=== PATIENT | female | born 1985 | race Caucasian/White ===

== ENCOUNTER → 2017-01-12 | Outpatient (CLI) | payer OTHER ==
[~2017-01-12] MED LIST: ACET50TA PO; AMOX250C3 PO; DOCU10ELUD PO; IBUP80TA PO; LABE10TAB PO; MOM30SS PO; PRENTAB66 PO; VENL37TA FT
--- NOTE | 2017-01-13 05:01 | REP ---
Clinical: Dating and viability. Technique: Transabdominal first trimester obstetrical ultrasound. Findings: Ultrasound examination demonstrates a single live intrauterine in variable presentation. The placenta is noted anteriorly and grade zero. Amniotic fluid volume is normal. Cervix measures 3.7 cm in length and appears closed. Gestational age by biometrical measurements 14 weeks 5 days. Estimated date of delivery 07/08/2017. heart rate equals 153 beats per minute. Impression: Single live early intrauterine at 14 weeks 5 days gestational age. Complete anatomical assessment should be performed at 19-20 weeks. Signed by Lyndon Tavares MD 01/13/2017 04:53 A
== END ==
LOC: M SMT 12:59
PROVIDERS: ATTEND Nurse Practitioner Family
DX: Z34.81 Encounter for supervision of other normal pregnancy, first trimester (principal)

== ENCOUNTER → 2017-01-25 | Outpatient (CLI) | payer OTHER ==
--- NOTE | 2017-01-25 12:01 | REP ---
OBSTETRIC ULTRASOUND: 01/25/2017 COMPARISON: First trimester ultrasound 01/12/2017. CLINICAL HISTORY: No heart motion noted at office appointment today. FINDINGS: Sonographic evaluation shows no heart activity or movement during this examination on multiple interrogations. An anterior grade 0 placenta noted without previa abruption. There is a contraction posteriorly. Biometry: BPD 3 cm = 15 weeks 4 HC 12.4 cm = 15 weeks 2 days AC 10.3 cm = 16 weeks 2 days FL 1.5 cm = 14 weeks 4 days. HL 1.7 cm = 14 weeks 6 days Average ultrasound age 15 weeks 3 days, EDC 07/16/2017. By initial ultrasound she is 16 weeks 4 days. The cervix is 4 cm long and closed. IMPRESSION: 1. Intrauterine demise with no heart activity or movement observed on multiple interrogations. size at 15 weeks 3 days. By initial ultrasound she would be 16 weeks 4 days. 2. Anterior placenta without previa or abruption. A posterior contraction noted. Visually normal amniotic fluid. Signed by Manny Martinez MD 01/25/2017 05:06 P
== END ==
LOC: M RAD 10:55
PROVIDERS: ATTEND Advanced Practice Midwife
DX: Z34.81 Encounter for supervision of other normal pregnancy, first trimester (principal)

== ENCOUNTER 2017-01-26 14:32 | Inpatient (IN) | payer OTHER ==
[~2017-01-26] VITALS: Ht 170.2 cm; Wt 137.0 kg
[2017-01-26 14:45] VITALS: BP 143/87
[2017-01-26] MEDS ORDERED: LR 1,000 ML IV SCH ×2 (15:30→22:45)
[2017-01-26 15:33] LABS: BASO % 0.2 % (0.0-1.0); EOS % 0.2 % (0.0-3.0); LARGE UNSTAINED CELL # 0.1 K/mm3 (0.0-0.4); LARGE UNSTAINED CELL % 1.9 % (0.0-4.0); LYMPH # 1.9 K/mm3 (1.5-4.5); LYMPH % 31.2 % (24.0-44.0); MEAN CORPUSCULAR HEMOGLOBIN 29.2 pg (27.0-33.0); MEAN CORPUSCULAR HGB CONC 33.2 g/dl (32.0-36.5); MONO # 0.3 K/mm3 (0.0-0.8); MONO % 4.7 % (0.0-5.0); NEUTROPHILS # 3.6 K/mm3 (1.8-7.7); NEUTROPHILS % 61.8 % (36.0-66.0); PLATELET COUNT, AUTOMATED 237 k/mm3 (150-450); RED CELL DISTRIBUTION WIDTH 13.1 % (11.5-14.5); WHITE BLOOD COUNT 5.8 K/mm3 (4.0-10.0)
[2017-01-26 16:27] LABS: THYROXINE (T4) 12.4 UG/DL (4.5-12.0)
--- NOTE | 2017-01-26 17:50 | HPEPDOC ---
Obstetrical History & Physical General Date of Admission Jan 26, 2017 at 16:17 History of Present Illness Tanisha is a 31yo who presents to L&D with known IUFD. By original dating u/s she should be 16w5d today. She presented for 3D ultrasound to outside radiology facility and was told, "the baby has no heartbeat, present to your doctor for care." She followed up in clinic yesterday and had a formal ultrasound at [facility] which re-demonstrated absence of cardiac activity. She was counseled on options for delivery (expectant management vs medical management vs surgical D&E). She elected to proceed with medical management and was given 4 doses of oral cytotec 200mcg to take q6hr and then had a follow-up visit in clinic today. Since yesterday she has had very light cramping, no vaginal bleeding at all. No fevers/chills/nausea/vomiting. Tanisha was sent from clinic to L&D for further medical management. However, on presentation she states she would like to proceed with D&E rather than continue with cytotec medical management. She understands that a D&E does not remove an intact fetus, and she states she and her have talked about it at length and she is accepting of this, preferring it over continued medical management. PMhx: Obesity, HTN on labetalol 200mg BID, Depression/Anxiety on effexor 150mg qd, GERD on zantac 150mg qd Chief Complaint: IUFD Information Provided By: Patient Care Care: None Dating Final EDC: Jul 08, 2017 Final EDC by: LMP Antepartum Course Diagnos(e)s IUFD at 15 weeks, Obesity Height (inches): 67 Pre- weight (lbs.): 290 Past Medical History Past Obstetrical History : Past Obstetrical History: Multigravida (History of 3 prior vaginal deliveries at 37wk, 40wk, 33wk. 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 history Past Medical History Medical History Obesity, HTN on labetalol 200mg BID, Depression/Anxiety on effexor 150mg qd, GERD on zantac 150mg qd Surgical History: [place] teeth Family History Significant Family History: No pertinent family hx Social History Marital Status: Family situation: Spouse/partner home Psychosocial History: Anxiety, Depression * Smoker: current smoker (smokes 5 cig/day, has smoked for 3 years) Alcohol: Denies Drugs: denies Allergies Coded Allergies: No Known Allergies (Verified Allergy, 10/10/12) Medications Scheduled ( Vitamins Plus) Plus Tab 1 PO DAILY Acetaminophen (Tylenol) 500 Mg Tab 1,000 MG PO Q4HP Ibuprofen (Motrin, Advil) 800 Mg Tab 800 MG PO Q8HP Labetalol Hcl (Normodyne, Trandate) 100 Mg Tab 100 MG PO BID Venlafaxine Hcl (Effexor) 37.5 Mg Tab 37.5 MG FT DAILY Physical Examination Physical Examination GENERAL: Alert and oriented times three. ABDOMEN: obese, NTTP HEART RATE: Regular rate and rhythm. LUNGS: Clear to auscultation (CTA). EXTREMITIES: No edema. Vital Signs/I&O Vital Signs Date Time Temp Pulse Resp B/P Pulse Ox O2 Delivery O2 Flow Rate FiO2 01/26/17 14:45 98.6 86 18 143/87 Laboratory Data 24H LABS Laboratory Tests 2 01/26/17 15:20: White Blood Count 5.8, Red Blood Count 4.02, Hemoglobin 11.7L, Hematocrit 35.4L , Mean Corpuscular Volume 88.0, Mean Corpuscular Hemoglobin 29.2, Mean Corpuscular Hemoglobin Concent 33.2, Red Cell Distribution Width 13.1, Platelet Count 237, Neutrophils (%) (Auto) 61.8, Lymphocytes (%) (Auto) 31.2, Monocytes ( %) (Auto) 4.7, Eosinophils (%) (Auto) 0.2, Basophils (%) (Auto) 0.2, Neutrophils # (Auto) 3.6, Lymphocytes # (Auto) 1.9, Monocytes # (Auto) 0.3, Eosinophils # (Auto) 0.0, Basophils # (Auto) 0.0, Large Unclassified Cells # 0.1 , Large Unclassified Cells % 1.9, Syphilis Serology NONREACTIVE, Thyroid Stimulating Hormone (TSH) 0.806, Thyroxine (T4) 12.4H 01/26/17 15:21: CBC/BMP Laboratory Tests 01/26/17 15:20 Red Blood Count 4.02, Mean Corpuscular Volume 88.0, Mean Corpuscular Hemoglobin 29.2, Mean Corpuscular Hemoglobin Concent 33.2, Red Cell Distribution Width 13.1 , Neutrophils (%) (Auto) 61.8, Lymphocytes (%) (Auto) 31.2, Monocytes (%) (Auto ) 4.7, Eosinophils (%) (Auto) 0.2, Basophils (%) (Auto) 0.2, Neutrophils # (Auto ) 3.6, Lymphocytes # (Auto) 1.9, Monocytes # (Auto) 0.3, Eosinophils # (Auto) 0.0, Basophils # (Auto) 0.0 Pertinent Laboratoy Data Blood Type: B+ RBC Antibody Screen: Negative Anatomy Ultrasound Ultrasound Date: Jan 12, 2017 (dating ultrasound) Placenta Location: Anterior Normal Anatomy: Yes Placenta Previa: No Other Ultrasounds Formal ultrasound at [facility] on 01/25: absence of cardiac activity and movement, fetus measures 15w3d rather than 16w4d. Assessment/Plan Assessment Tanisha is a 31yo who presents to L&D with known IUFD at 16w5d, measuring 15w3d. IUFD diagnosed at outside 3D ultrasound, but confirmed 01/25 by formal ultarsound. Originally elected for medical management with cytotec, now s /p 4 doses of 200mcg oral cytotec overnight with no vaginal bleeding. On admission, now desires to proceed with surgical management, D&E after thorough counseling on all options. Last ate (subway sandwich) at 1:15pm, will proceed with surgery at 9:15pm. PMhx: Obesity, HTN on labetalol 200mg BID, Depression/Anxiety on effexor 150mg qd, GERD on zantac 150mg qd Plan Admit and orient Counseled on expectant management vs medical management vs surgical management ( D&E) and desires to proceed with D&E Consent form signed, OR notified, anesthesia desires 8hr after last ate so scheduled for 9:15pm tonight NPO until surgery Labs: CBC, T&S, syphilis serology, TSH/T4, lupus anticoagulant, beta 2 glycoprotein, anticardiolipin antibody, parvo virus serology, drug profile Lactated Ringers (LR) at 125 mL/hr while NPO All questions answered Dr. Humaira Sharp MD [place] Yen MD Jan 26, 2017 17:23
--- NOTE | 2017-01-26 17:59 | IPNPDOC ---
Text Note Date of Service The patient was seen on 01/26/17. NOTE Laminaria Placement Note Tanisha is a 31yo who presents to L&D with known IUFD at 16w5d, measuring 15w3d. IUFD diagnosed at outside 3D ultrasound, but confirmed 01/25 by formal ultarsound. Originally elected for medical management with cytotec, now s /p 4 doses of 200mcg oral cytotec overnight with no vaginal bleeding. Now desires to proceed with surgical management, D&E, after thorough counseling on all options. Consent form signed. SSE (chaperoned by CLIVE Magana) performed by Dr. Barrios and assisted by Dr. Sharp : NEFG, sterile speculum inserted into the vagina, cervical os approximately 1cm dilated with no bleeding, anterior lip of cervix grasped with single tooth tenaculum. Ring forceps used to insert FIVE laminaria of varying sizes into the cervical canal, one-by-one. All laminaria strings visible outside the cervical os. Tenaculum removed with site hemostasis. One 4x4 sponge rolled up and placed flush against the cervix to hold the laminaria in place. Speculum removed. Patient tolerated the procedure well. Laminaria will be removed at time of D&E. Anticipated surgery time: 21:15 NPO until that time with IVF Dr. Geraldine Sharp MD [place] WARREN,Vish, I+O VSVish, I+O Laboratory Tests 01/26/17 15:20 Red Blood Count 4.02, Mean Corpuscular Volume 88.0, Mean Corpuscular Hemoglobin 29.2, Mean Corpuscular Hemoglobin Concent 33.2, Red Cell Distribution Width 13.1 , Neutrophils (%) (Auto) 61.8, Lymphocytes (%) (Auto) 31.2, Monocytes (%) (Auto ) 4.7, Eosinophils (%) (Auto) 0.2, Basophils (%) (Auto) 0.2, Neutrophils # (Auto ) 3.6, Lymphocytes # (Auto) 1.9, Monocytes # (Auto) 0.3, Eosinophils # (Auto) 0.0, Basophils # (Auto) 0.0 Vital Signs Date Time Temp Pulse Resp B/P Pulse Ox O2 Delivery O2 Flow Rate FiO2 01/26/17 14:45 98.6 86 18 143/87 GERALDINE SHARP MD Jan 26, 2017 17:58
[2017-01-26] MEDS ORDERED: LIDOCAINE 1% SDV INJ 30 ML VIAL As Ordered ONE (20:51)
[2017-01-26] MEDS ORDERED: SILVER NITRATE APPLICATOR As Ordered ONE (20:51)
[2017-01-26] MEDS ORDERED: fentaNYL 100 MCG/2 ML INJECTION (J3010) As Ordered ONE (21:41)
[2017-01-26] MEDS ORDERED: MIDAZOLAM INJ 2 MG/2 ML VIAL (J2250) As Ordered ONE (21:41)
[2017-01-26] MEDS ORDERED: LIDOCAINE 2% JELLY 30 ML As Ordered ONE (21:42)
[2017-01-26] MEDS ORDERED: METOCLOPRAMIDE INJ 10MG/2ML VIAL (J2765) As Ordered ONE (21:45)
[2017-01-26] MEDS ORDERED: LIDOCAINE 2% INJ 100 MG/5 ML SDV (FOR ANES.) As Ordered ONE (21:45)
[2017-01-26] MEDS ORDERED: SUCCINYLCHOLINE 100 MG/5 ML SYRINGE (J0330) As Ordered ONE (21:45)
[2017-01-26] MEDS ORDERED: GLYCOPYRROLATE INJ 0.2 MG/ML 2 ML VIAL As Ordered ONE (21:45)
[2017-01-26] MEDS ORDERED: KETOROLAC 60 MG/2 ML VIAL (J1885) As Ordered ONE (21:45)
[2017-01-26] MEDS ORDERED: ONDANSETRON 4MG/2ML VIAL (J2405) As Ordered ONE (21:45)
[2017-01-26] MEDS ORDERED: PROPOFOL 200 MG/20 ML VIAL As Ordered ONE ×2 (21:45→22:17)
[2017-01-26] MEDS ORDERED: NEOSTIGMINE 1MG/ML 5 ML SYRINGE (J2710) As Ordered ONE (21:45)
[2017-01-26] MEDS ORDERED: ROCURONIUM BROMIDE 50 MG/5 ML VIAL As Ordered ONE (21:45)
[2017-01-26] MEDS ORDERED: METOCLOPRAMIDE INJ 10MG/2ML VIAL (J2765) IV PRN (22:45)
[2017-01-26] MEDS ORDERED: fentaNYL 100 MCG/2 ML INJECTION (J3010) IV PRN (22:45)
[2017-01-26] MEDS ORDERED: ONDANSETRON 4MG/2ML VIAL (J2405) IV PRN (22:45)
[2017-01-26] MEDS ORDERED: MEPERIDINE INJ 25 MG/ML VIAL (J2175) IV PRN (22:45)
[2017-01-26] MEDS ORDERED: PERCOCET 5MG/325MG TAB PO PRN (22:45)
[2017-01-26 22:52] VITALS: BP 123/66
[2017-01-26] MEDS ORDERED: DOXYCYCLINE HYCLATE 100 MG TAB PO ONE (23:45)
--- NOTE | 2017-01-27 06:02 | RO ---
DATE OF PROCEDURE: 01/26/2017 PREPROCEDURE DIAGNOSIS: Intrauterine demise at approximately 16 weeks. POSTPROCEDURE DIAGNOSIS: Intrauterine demise at approximately 16 weeks. SURGEON: Geraldine Sharp MD UPSETTER SETTER UP: Dell Barrios MD CLINICAL SERVICE: Gynecology. ANESTHESIA: GETA MATERIAL FORWARDED TO THE LAB FOR EXAMINATION: Intrauterine contents/products of conception. INDICATION FOR OPERATION: Tanisha is a 31-year-old G4, now P2-1-1-3 who had presented to an outside ultrasound facility for a 3D ultrasound and was noted to have absent cardiac activity at approximately 16 weeks. She then presented to our clinic and had confirmatory formal ultrasound which showed no cardiac activity and no movement measuring approximately 15 weeks 3 days though she should have been measuring closer to 16 weeks 4 days. She was counseled on her options, expected management versus medical management versus surgical management and she originally elected for medical management and had four doses of oral Cytotec with no bleeding over the course of an evening and she presented to her followup appointment desiring then surgical management. She was re-counseled and desired to proceed with a dilation and evacuation. DESCRIPTION OF FINDINGS: Laminaria was placed preoperatively (five total laminaria sticks with one sponge- in the OR the five laminaria sticks were counted and removed along with the sponge). Her cervix at that point was dilated to approximately 1-2 cm. Transabdominal ultrasound confirmed again no cardiac activity, fetus measuring approximately 15 weeks. The procedure was performed under ultrasound guidance and at the end of the procedure, the parts were all accounted for. INFECTION CLASSIFICATION: 2. ESTIMATED BLOOD LOSS: 150 mL. IV FLUIDS: 1 liter LR URINE OUTPUT: Not measured. OPERATION PERFORMED: Dilation and evacuation. DESCRIPTION OF OPERATION: Prior to the operative procedure in the labor and delivery room, five laminary sticks were placed in the cervix with the strings protruding from the os and 4x4 gauze was placed up against the cervix to keep the laminary in place. After arrival in the OR, Tanisha underwent general endotracheal anesthesia and was placed in low lithotomy position and perineum and vagina were prepped and draped in sterile fashion. [place] speculum was inserted and all five laminary sticks along with 4x4 gauze were removed. Cervix at this point was approximately 1-2 cm dilated. Anterior segment of the cervix was grasped with a single tooth tenaculum and the cervix was sequentially dilated using Carolyn dilators. A 16 mm suction curette was introduced to the fundus of the uterus under ultrasound guidance. Suction was activated at 60 cm of water. We began then to extract a mixture of fluid, blood and tissue with parts noted in the suction. Under ultrasound guidance, we used small forceps to continue to remove parts including the calvarium. Suction curettage was used again to remove the placenta and then a sharp curette was used with good cry noted in 360 degrees. One more pass of the suction curette ensured removal of all intrauterine contents. Hemostasis was noted after the procedure. Then on the OR table, we placed all of the parts to include the upper limbs, spine with pelvis and legs and the calvarium together to account for all of the parts, along with the placenta. At that point, the tenaculum was removed from the cervix and hemostasis was noted at the tenaculum sites. [place] speculum was removed. Good uterine massage was employed to gain firmness of both the uterus fundus and the lower uterine segment. She was awakened from general anesthesia in good condition and transferred to the recovery room. All counts were correct times two. JOSE
[2017-01-29 00:06] LABS: ANTI PARVO VIRUS LEVEL IGG 7.2 index (0.0-0.8); ANTI PARVO VIRUS LEVEL IgM 0.2 index (0.0-0.8)
== END 2017-01-27 00:31 | disposition home or self-care (01) | DRG 770 ==
LOC: M LDO 14:32 → M LDI 16:17
PROVIDERS: ADMIT Obstetrics & Gynecology; ATTEND Obstetrics & Gynecology
PROC: 10D17ZZ Extraction of Products of Conception, Retained, Via Natural or Artificial Opening (ICD-10-PCS; principal; 2017-01-26 21:15)
DX: O02.1 Missed abortion (principal)

== ENCOUNTER 2017-07-13 15:03 | Emergency (ER) | payer OTHER ==
[~2017-07-13] VITALS: Ht 170.2 cm; Wt 100.0 kg
[2017-07-13] MEDS ORDERED: IBUP80TA PO (15:15)
[2017-07-13] MEDS ORDERED: LABE20TAB (15:15)
[2017-07-13] MEDS ORDERED: VENL150C43 PO (15:15)
[2017-07-13] MEDS ORDERED: RANI150T (15:15)
[2017-07-13] MEDS ORDERED: MORPHINE 4 MG/ML 1ML SYRINGE IV ONE (16:30)
[2017-07-13] MEDS ORDERED: ONDANSETRON 4MG/2ML VIAL (J2405) IV ONE (16:30)
[2017-07-13] MEDS ORDERED: GASTROGRAFIN SOLUTION 30ML (Q9963) PO ONE ×2 (16:30)
[2017-07-13 17:00] LABS: BASO % 0.2 % (0.0-1.0); EOS % 0.5 % (0.0-3.0); LARGE UNSTAINED CELL # 0.1 K/mm3 (0.0-0.4); LARGE UNSTAINED CELL % 1.4 % (0.0-4.0); LYMPH # 1.8 K/mm3 (1.5-4.5); MEAN CORPUSCULAR HEMOGLOBIN 26.1 pg (27.0-33.0); MEAN CORPUSCULAR HGB CONC 32.3 g/dl (32.0-36.5); MEAN CORPUSCULAR VOLUME 80.8 fl (80.0-96.0); MONO # 0.3 K/mm3 (0.0-0.8); MONO % 4.5 % (0.0-5.0); NEUTROPHILS # 3.6 K/mm3 (1.8-7.7); NEUTROPHILS % 62.5 % (36.0-66.0); PLATELET COUNT, AUTOMATED 272 k/mm3 (150-450); RED CELL DISTRIBUTION WIDTH 14.5 % (11.5-14.5); WHITE BLOOD COUNT 5.7 K/mm3 (4.0-10.0)
[2017-07-13 17:19] LABS: ALBUMIN 3.8 GM/DL (3.2-5.2); ALBUMIN/GLOBULIN RATIO 1.12 (1.00-1.93); ALKALINE PHOSPHATASE 84 U/L (45-117); ALT/SGPT 24 U/L (12-78); AMYLASE 38 U/L (25-115); ANION GAP 9 MEQ/L (8-16); AST/SGOT 14 U/L (15-37); BILIRUBIN,DIRECT < 0.1 MG/DL (0.0-0.2); BILIRUBIN,TOTAL 0.1 MG/DL (0.2-1.0); BLOOD UREA NITROGEN 11 MG/DL (7-18); CALCIUM LEVEL 8.7 MG/DL (8.5-10.1); CARBON DIOXIDE LEVEL 24 MEQ/L (21-32); CHLORIDE LEVEL 108 MEQ/L (98-107); CREATININE FOR GFR 0.78 MG/DL (0.55-1.02); GLOMERULAR FILTRATION RATE > 60.0 (>60); GLUCOSE, FASTING 98 MG/DL (70-105); POTASSIUM SERUM 4.3 MEQ/L (3.5-5.1); SODIUM LEVEL 141 MEQ/L (136-145); TOTAL PROTEIN 7.2 GM/DL (6.4-8.2)
[2017-07-13] MEDS ORDERED: ISOVUE-370 76% 100ML VIAL (Q9967) As Ordered ONE (18:02)
--- NOTE | 2017-07-13 18:40 | REPUSA ---
HISTORY: PERIUMBILICAL PAIN, NAUSEA. TECHNIQUE: Axial CT imaging of abdomen and pelvis with intravenous contrast enhancement and sagittal and coronal reformatted imaging. DLP= 1653.4 mGy-cm. FINDINGS: Lung bases are clear. No bony fracture or destructive bony lesion is seen in the lower thor ax, abdomen, and pelvis. Liver, biliary tree, gallbladder, pancreas, and spleen are normal. Adrenal glands are normal. Right and left kidneys are normal with no evidence of mass lesion, obstruc tion, or nephrolithiasis seen. Ureters and urinary bladder are normal. There is no evidence of abdomi nal aortic aneurysm. No retroperitoneal mass lesion or hemorrhage is seen. No pelvic mass lesion or abnormal fluid collections are seen in the abdomen and pelvis. There is no e vidence of bowel wall mass lesion, obstruction, perforation, inflammatory reaction, or evidence of di verticulitis. The appendix is visualized and normal. There is a fat-containing umbilical hernia wit h mouth of hernia measuring 1.8 cm. IMPRESSION: Small fat-containing umbilical hernia; otherwise negative CT of abdomen and pelvis.
[2017-07-13 19:04] VITALS: BP 143/89
== END 2017-07-13 19:07 | disposition home or self-care (01) ==
LOC: M ED 15:03
DX: K42.9 Umbilical hernia without obstruction or gangrene (principal)
CPT/HCPCS: 74177; 80048; 80076; 81001; 81025; 82150; 83690; 85025; 96374; 96375; 99283; J2405; Q9963; Q9967

== ENCOUNTER 2018-04-03 10:57 | Emergency (ER) | payer OTHER ==
[2018-04-03 12:38] LABS: HEMATOCRIT 33.3 % (36.0-47.0); HEMOGLOBIN 10.3 g/dl (12.0-15.5); IMMATURE GRANULOCYTE % 0.4 % (0-3.0); LYMPH # 1.5 10^3/uL (1.5-4.5); LYMPH % 22.6 % (24.0-44.0); MEAN CORPUSCULAR HEMOGLOBIN 23.8 pg (27.0-33.0); MEAN CORPUSCULAR HGB CONC 30.9 g/dl (32.0-36.5); MEAN CORPUSCULAR VOLUME 76.9 fl (80.0-96.0); MONO # 0.4 10^3/uL (0.0-0.8); MONO % 5.2 % (0.0-5.0); NEUTROPHILS # 4.9 10^3/uL (1.8-7.7); NEUTROPHILS % 71.8 % (36.0-66.0); PLATELET COUNT, AUTOMATED 291 10^3/uL (150-450); RED BLOOD COUNT 4.33 10^6/uL (4.00-5.40); RED CELL DISTRIBUTION WIDTH 15.9 % (11.5-14.5); WHITE BLOOD COUNT 6.8 10^3/uL (4.0-10.0)
[2018-04-03 12:57] LABS: ANION GAP 7 MEQ/L (8-16); BLOOD UREA NITROGEN 7 MG/DL (7-18); C REACTIVE PROTEIN QUANTITATIV 1.91 MG/DL (0.00-0.30); CALCIUM LEVEL 7.9 MG/DL (8.5-10.1); CARBON DIOXIDE LEVEL 24 MEQ/L (21-32); CHLORIDE LEVEL 109 MEQ/L (98-107); CREATININE FOR GFR 0.73 MG/DL (0.55-1.30); GLOMERULAR FILTRATION RATE > 60.0 (>60); GLUCOSE, FASTING 99 MG/DL (70-100); POTASSIUM SERUM 3.9 MEQ/L (3.5-5.1); SODIUM LEVEL 140 MEQ/L (136-145)
[2018-04-03 13:00] LABS: LACTIC ACID SEPSIS PROTOCOL 0.7 MMOL/L (0.4-2.0)
== END 2018-04-03 14:18 | disposition home or self-care (01) ==
LOC: M ED 10:57
DX: J95.89 Other postprocedural complications and disorders of respiratory system, not elsewhere classified (principal); L03.311 Cellulitis of abdominal wall; I10 Essential (primary) hypertension; K21.9 Gastro-esophageal reflux disease without esophagitis; Z79.899 Other long term (current) drug therapy
CPT/HCPCS: 76705